=== PATIENT | male | born 1965 | race African-American/Black ===

== ENCOUNTER 2017-01-19 20:39 | Observation (INO) ==
[2017-01-19] MEDS ORDERED: SODIUM CHLORIDE 0.9% 500 ML IV STA (21:31)
[2017-01-19] MEDS ORDERED: ONDANSETRON 4 MG/2 ML VIAL IV STA (21:31)
[2017-01-19] MEDS ORDERED: NITROGLYCERIN 2% OINT 1 INCH/GM PACK TOP STA (21:31)
[2017-01-19] MEDS ORDERED: ALUM/MAG/SIMETH/LIDO VISC 1:1 30 ML BOTTLE PO STA (21:31)
[2017-01-19] MEDS ORDERED: MORPHINE 2 MG/1 ML SYRINGE IV STA (21:31)
[2017-01-19 21:47] LABS: Basophils % 0.3 % (0.0-0.8); Eosinophils % 0.6 % (0.00-10.9); Hematocrit 44.3 VOL% (42.0-52.0); Hemoglobin 14.9 GM/DL (14.0-18.0); Immature Granulocytes % 0.4 %; Immature Granulocytes Absolute 0.03 #; Lymphocytes # 3.9 10*3/uL (1.4-4.0); Lymphocytes % 57.2 % (21.2-54.2); Mean Corpuscular HGB Conc 33.6 GM/DL (32-36); Mean Corpuscular Hemoglobin 32 PG (27-34); Mean Corpuscular Volume 96.1 FL (87-102); Mean Platelet Volume 10.1 FL (9.6-12.0); Monocytes # 0.4 10*3/uL (0.11-0.8); Monocytes % 5.8 % (1.7-12.7); Neutrophils # 2.4 10*3/uL (1.4-7.4); Neutrophils % 35.7 % (38.7-73.9); Platelet Count 262 T/CUMM (130-400); Red Blood Count 4.61 MC/CUMM (3.8-5.5); Red Cell Distribution Width 13.1 % (9.3-17.3); White Blood Count 6.8 T/CUMM (4-12)
[2017-01-19] MEDS ORDERED: ONDANSETRON 4 MG/2 ML VIAL ONE (21:48)
[2017-01-19] MEDS ORDERED: NITROGLYCERIN 2% OINT 1 INCH/GM PACK TOP ONE (21:48)
[2017-01-19] MEDS ORDERED: MORPHINE 2 MG/1 ML SYRINGE ONE (21:49)
[2017-01-19] MEDS ORDERED: ALUM/MAG/SIMETH/LIDO VISC 1:1 30 ML BOTTLE PO ONE (21:49)
[2017-01-19 21:55] LABS: D-Dimer <= 0.5 MG/L FEU; INR 1.1; PT Patient Result 11.4 SECS
[2017-01-19 21:57] LABS: Albumin 4.1 G/DL (3.4-5.0); Bilirubin,Total 0.6 MG/DL (0.2-1.0); Calcium 9.2 MG/DL (8.5-10.1); Magnesium 2.3 MG/DL (1.8-2.4); Potassium 3.4 MMOL/L (3.5-5.1); Total Protein 8.1 G/DL (6.4-8.3)
--- NOTE | 2017-01-19 21:59 | XRay Report ---
Exam: XR chest 2V Date: 01/19/2017 9:31 PM Indication: Chest pain Comparison: None Technical: PA lateral Findings: Scarring is present in the right apex and perihilar suprahilar region. No obvious consolidating infiltrate or effusion. External cardiac leads are present. The mediastinum reveals small calcified nodes in the right hilus. The heart is normal in size. Impression: 1. Mild scarring and blebs or absence changes extending into the right apex with calcified nodes in the right perihilar region. PROCEDURE INTERPRETED AT [facility] DEPARTMENT OF RADIOLOGY Final Report Signed by: Dr. Harpreet Valdes
[2017-01-19 22:44] LABS: Apearance,Urine CLEAR (Clear); Bilirubin,Urine Negative (Negative); Blood, Urine Negative (Negative); Glucose,Urine (UA) Negative (Negative); Hyaline Casts,Urine 1 /LPF (0-3); Ketones,Urine Negative (Negative); Mucus,Urine Occasional /LPF (Occasional); Nitrite,Urine Negative (Negative); Protein,Urine Negative; RBC,Urine 1 /HPF (0-4); Urine Color Yellow (Yellow); Urine Specific Gravity 1.014 (1.001-1.035); WBC,Urine 2 /HPF (0-6)
[2017-01-19 22:50] LABS: Barbiturates Screen,Urine Negative (Negative); Benzodiazepines Screen,Urine Negative (Negative); Cannabinoid Screen,Urine Negative (Negative); Opiate Screen,Urine Positive (Negative); Phencyclidine Screen,Urine Negative (Negative)
[2017-01-20 00:10] LABS: Platelet Estimate Normal
--- NOTE | 2017-01-20 00:30 | Emergency Department Note ---
Jessenia Nicolas Hilary, am scribing for, and in the presence of, Byron Laazr MD 22:05. Cady Nicolas Charles R, MD, personally performed the services described in this documentation, ascribed by Angelina Ruelas in my presence, and it is both accurate and complete . Arrival - Arrival Chief Complaint: Chest Pain Stated Complaint: heart hurting ED Nursing Triage Note: C/O Pain over left breast nonradiating. Onset one week ago. Pt states that sometimes when he lays wrong it hurts. Denies SOB/Nausea/ Diaphoresis. Pt reports that ibuprofen does help at times Mode of Arrival: Ambulatory Limitations: No Limitations Source: Patient Time Seen by Provider: 01/19/17 21:31 - History of Present Illness HPI Narrative: Patient is a 51 y/o male presenting to the ED with chest pain which onset a week ago. He states that it is a pinching and sharp intermittent pain on the left side of his chest, he also complains of left leg "twisting" sensation. Patient confirms being SOB at night and when he is walking a lot. He also complains of wheezing when he lies down. No other complaints or problems in ED. Allergies/Adverse Reactions: Allergies Allergy/AdvReac Type Severity Reaction Status Date / Time aspirin AdvReac Intermediate Nausea Verified 01/19/17 20:44 Home Medications: Home Medications Medication Instructions Recorded Confirmed Type No Known Home Medications [No 01/19/17 01/19/17 History Known Home Medications] Review of System - Review of System 12 point system: reviewed and no additional remarkable complaints except as stated - Review of System Constitutional: Absent: fever Respiratory: Present: wheezing (when lying down) Cardiovascular: Present: chest pain, dyspnea on exertion (at night and when walking a lot) Musculoskeletal: Present: leg pain (left leg "twisting") Medical,Surgical,& Family Hx - Social History Smoking Status: Current every day smoker Frequency of Alcohol Use: None Type of Drug Use: None Exam Vital Signs: Vital Signs Temperature 98.0 F 01/19/17 20:41 Pulse Rate 72 01/20/17 00:05 Respiratory Rate 16 01/20/17 00:05 Blood Pressure 118/73 01/20/17 00:05 O2 Sat by Pulse Oximetry 100 01/20/17 00:05 - General General appearance: alert, in no apparent distress - Head Head exam: Present: atraumatic, normocephalic - Eye Eye exam: Present: normal appearance, PERRL, EOMI - ENT ENT exam: Present: mucous membranes moist, TM's normal bilaterally - Neck Neck exam: Present: full ROM, trachea midline. Absent: tenderness, meningismus , lymphadenopathy - Chest Chest inspection: Present: symmetric chest wall rise. Absent: tenderness - Respiratory Respiratory exam: Present: normal lung sounds bilaterally. Absent: respiratory distress - Cardiovascular Cardiovascular exam: Present: regular rate, normal rhythm, normal heart sounds. Absent: murmur, rubs, gallop - Abdominal Exam Abdominal exam: Present: soft, normal bowel sounds. Absent: distention, tenderness - Extremities Exam Extremities exam: Present: full ROM. Absent: tenderness, pedal edema, calf tenderness - Back Exam Back exam: Present: full ROM. Absent: tenderness - Neurological Exam Neurological exam: Present: alert, oriented X3, CN II-XII intact. Absent: motor sensory deficit - Psychiatric Psychiatric exam: Present: normal affect, normal mood - Skin Skin exam: Present: warm, dry, intact, normal color Course - Consultations Consultation #1: Hospitalist will admit patient Time: 00:38 Results - Labs CBC & BMP: 01/19/17 21:30 01/19/17 21:06 Lab Results: I have reviewed the patients labs Labs: Laboratory Tests 01/19/17 21:06 Potassium 3.4 L Chloride 109 H Glucose 108 H Globulin 4.0 H Albumin/Globulin Ratio 1.0 L - Diagnostic Findings Procedure: Chest x-ray: report reviewed by me (1. Mild scarring and blebs or absence changes extending into the right apex with calcified nodes in the right perihilar region.) Disposition Clinical Impression: Atypical chest pain Case discussed with: patient, patient's family Disposition: Still a Patient Condition: Stable Time of Disposition: 00:38
--- NOTE | 2017-01-20 01:06 | Hospitalist History & Physical ---
Assessment and Plan - Time spent with patient Time spent discussing smoking cessation with patient: 3 to 10 minutes (1) Chest tightness or pressure Status: Acute Current Visit: Yes (2) Smoker Status: Acute Current Visit: Yes (3) Elevated blood pressure reading Status: Acute Current Visit: Yes (4) COPD (chronic obstructive pulmonary disease) Status: Acute Assessment and plan: Plan: Observe, check serial cardiac enzymes, consult cardiology for stress test Follow blood pressure, patient may have underlying hypertension Current Visit: No Qualifiers: COPD type: emphysema History of Present Illness Chief complaint: Chest pressure 1 week History of present illness: Mr. Fitzpatrick is a 51 year old male with COPD seen on chest x-ray, longtime smoker , no routine health care in many years but has elevated blood pressure whenever he checks it at work. Apparently he has had 1 week of waxing and waning left- sided chest pressure that lasts several seconds and subsides spontaneously. There is no change with activity or rest. He has multiple episodes a day, but may also go a few days without having any episodes. He denies concomitant shortness of breath, diaphoresis, or nausea. Activities such as climbing stairs does not exacerbate this he states. The chest pressure does not radiate , tonight it became more intense than usual prompting him to come to the emergency room. At this time his symptoms are fairly constant despite nitro patch. Not reproducible with palpation. Home Medications Medication Instructions Recorded Confirmed Type No Known Home Medications [No 01/19/17 01/19/17 History Known Home Medications] Allergies Allergy/AdvReac Type Severity Reaction Status Date / Time aspirin AdvReac Intermediate Nausea Verified 01/19/17 20:44 Medical,Surgical,& Family Hx - Medical History Cardio: No history of: CHF, ID Neurology: No history of: Cerebrovascular Accident Respiratory: History of: COPD Gastrointestinal: No history of: GERD - Surgical History Additional Surgical History: No prior surgery - Family History Family History: Reports;: Family Heart Disease (Mother with CABG at age 60) - Social History Smoking Status: Current every day smoker Have you smoked in the last 12 months: Yes Time spent discussing smoking cessation with patient: 3 to 10 minutes Frequency of Alcohol Use: None Type of Drug Use: None Marital Status: Lives With:: Spouse Functional capacity: independent ambulation Review of systems: A 12 point review of systems is negative except as specified in the HPI Exam - Constitutional Vitals: Period Temp Pulse Resp BP Sys/Will Pulse Ox Last 24 Hr 98.0 F-98.0 F 72-103 11-22 110-160/67-89 97-100 Exam: EXAM: CONSTITUTIONAL: Thin, non toxic, NAD HEENT: NC, AT, OP benign, CECILIA, EOMI CV: RRR no m/g/r, pain nonreproducible with palpation of the chest wall RESP: clear B/L, no w/r/r, distant breath sounds GI: abd soft, NT, ND, +bowel sounds INTEGUMENTARY: no lesions or rash EXTREMITIES: no c/c/e NEURO: no focal deficits PSYCH: unremarkable, A/O x3 Results - Labs CBC & BMP: 01/20/17 02:00 01/20/17 02:00 Lab Results: I have reviewed the past 24 hour labs - EKG EKG shows: sinus rhythm - Diagnostic Findings Procedure: Chest x-ray: image reviewed by me, report reviewed by me
[2017-01-20] MEDS ORDERED: ACETAMINOPHEN 325 MG TABLET PO PRN (01:08)
[2017-01-20] MEDS ORDERED: MORPHINE 2 MG/1 ML SYRINGE IV PRN (01:08)
[2017-01-20] MEDS ORDERED: ONDANSETRON 4 MG/2 ML VIAL IV PRN (01:08)
[2017-01-20] MEDS ORDERED: BISACODYL 5 MG TABLET PO PRN (01:08)
[2017-01-20] MEDS ORDERED: ENOXAPARIN 40 MG/0.4 ML SYRINGE SUBCUT SCH (01:30)
[2017-01-20] MEDS ORDERED: NITROGLYCERIN SL 0.4 MG TABLET SL PRN (01:54)
[2017-01-20 02:17] LABS: Basophils % 0.2 % (0.0-0.8); Eosinophils % 0.7 % (0.00-10.9); Hemoglobin 14.3 GM/DL (14.0-18.0); Immature Granulocytes % 0.3 %; Immature Granulocytes Absolute 0.02 #; Lymphocytes # 3.4 10*3/uL (1.4-4.0); Lymphocytes % 56.8 % (21.2-54.2); Mean Corpuscular HGB Conc 32.5 GM/DL (32-36); Mean Corpuscular Hemoglobin 31 PG (27-34); Mean Corpuscular Volume 96.5 FL (87-102); Monocytes # 0.5 10*3/uL (0.11-0.8); Monocytes % 8.5 % (1.7-12.7); Neutrophils % 33.5 % (38.7-73.9); Platelet Count 274 T/CUMM (130-400); Red Blood Count 4.56 MC/CUMM (3.8-5.5); Red Cell Distribution Width 13.4 % (9.3-17.3)
[2017-01-20 02:49] LABS: Band Neutrophils 2 % (0-10); Eosinophils 1 % (0-10); Lymphocytes 64 % (20-55); Myelocytes 1 %; Segmented Neutrophils 29 % (50-85); Total Cells Counted 100
[2017-01-20 02:50] LABS: Anisocytosis 1+; Platelet Estimate Normal
[2017-01-20 02:52] LABS: Albumin 3.7 G/DL (3.4-5.0); Bilirubin,Total 0.5 MG/DL (0.2-1.0); Calcium 8.8 MG/DL (8.5-10.1); Magnesium 2.2 MG/DL (1.8-2.4); Potassium 3.9 MMOL/L (3.5-5.1); Risk Ratio 3.33; Total Protein 7.7 G/DL (6.4-8.3); VLDL CHOLESTEROL 33.8 MG/DL
[2017-01-20 02:54] LABS: Troponin I Only < 0.015 NG/ML (0.00-0.045)
[2017-01-20 06:56] LABS: Troponin I Only < 0.015 NG/ML (0.00-0.045)
--- NOTE | 2017-01-20 07:44 | EKG Report ---
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
--- NOTE | 2017-01-20 08:02 | EKG Report ---
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
[2017-01-20] MEDS ORDERED: PANTOPRAZOLE 40 MG TABLET PO SCH (09:00)
--- NOTE | 2017-01-20 09:15 | Cardiology Consult Note ---
Assessment and Plan - Time spent with patient Time spent with patient: Greater than 30 minutes (due to assessment, plan, and documentation) Time spent discussing smoking cessation with patient: 3 to 10 minutes (1) Atypical chest pain Status: Acute Assessment and plan: 51 y/o BM with no significant medical or surgical history. New diagnosis of hyperlipidemia. Hx of tobacco abuse, family hx of CAD. Presents with chest pain , not typical for angina, suspicious for GI etiology. Negative cardiac biomarkers. Had isolated elevated blood pressure readings on admission, now well controlled without medications. -Continue Atorvastatin 40mg QHS. -Will continue Lovenox, patient has a noted aspirin allergy. -Will hold NPO and discuss further workup with Dr. Vora. -Patient will need risk stratification. 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 He denies any significant medical history or surgical history. He currently smokes 1 pack per day and has smoked for the last 25 years. He denies a history of hypertension, diabetes, prior stroke, reflux, asthma, lung disease. He reports his mom had CABG at age 6 or 61 and is now . He does have a family history of hypertension and cancer. He presented to the emergency room yesterday evening with complaints of chest discomfort intermittently for the last week and a half. He tells me that he has noticed a few instances of chest discomfort prior to the last week and a half but it has recently become more frequent. He tells me he is having a couple episodes of chest discomfort per week. His pain is located along his left chest wall and axilla region. He describes this pain as sometimes being a pressure and sometimes being stabbing pain. He reports it only lasts for 5-10 seconds before going away. He tells me he has had occasional episodes while he is up and moving around but notices this discomfort more often when he is laying down. He tells me it is sometimes worse when he is laying in a particular position and is sometimes improved when he raises his left arm. He has noticed occasional palpitations. He has no associated shortness of breath, diaphoresis, nausea, vomiting, dizziness, lightheadedness, or syncope. He has had an isolated incidence of lightheadedness but reports this was not associated with his chest discomfort. He tells me he has been trying to gain weight his whole life and admits to eating a late supper around 8PM and going to bed right after. His is at the bedside and does report that he snores frequently and sometimes seems like he is gasping for air or gets choked in his sleep. 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 He tells me he has to climb multiple flights of stairs daily and is able to do this without experiencing chest discomfort or shortness of breath. He does report frequent leg pains and muscle spasms in his left leg and reports isolated incidences of it "giving way." He has had 3 sets of negative troponins. EKG shows sinus rhythm, no acute ischemic changes. He has had a few elevated blood pressure readings upon admission, but blood pressure is currently well controlled. He was found to have elevated triglycerides and has been started on Atorvastatin. I discussed with him for greater than 5 minutes the importance of total cessation from tobacco products. I advised to establish care with a primary care provider to follow with his wellness and screening exams. He was instructed to keep a blood pressure log to monitor for hypertension and follow up with a primary care provider. Given his family history and risk factors, he will need risk stratification to rule out for cardiac disease. Will further discuss with Dr. Vora as to whether this will be done inpatient or outpatient. The patient is currently being held NPO in anticipation of further evaluation. I also suspect he may have an underlying sleep disorder which may require further workup by sleep medicine. CC: Delores Corral MD - Home Medications and Allergies Home Medications: Home Medications Medication Instructions Recorded Confirmed Type No Known Home Medications [No 01/19/17 01/19/17 History Known Home Medications] Allergies/Adverse Reactions: Allergies Allergy/AdvReac Type Severity Reaction Status Date / Time aspirin AdvReac Intermediate Nausea Verified 01/19/17 20:44 Review of systems: - Constitutional: Present: stops breathing during sleep, As per HPI. Absent: anorexia, chills, daytime sleepiness, excessive sweating, fever(s), frequent falls, headache(s), increased appetite, lethargy, malaise, night sweats, weakness, weight gain, weight loss, fatigue. - EENT Eyes: Present: As per HPI. Absent: blurry vision, diplopia, loss of vision Ears: Present: As per HPI. Absent: decreased hearing, ear discharge, ear pain Nose, mouth and throat: Present: As per HPI. Absent: dysphagia, epistaxis, headache(s), hoarseness, lip swelling, nasal congestion, neck mass, neck pain, sinus pressure, sore throat, throat swelling, tongue swelling, vertigo - Cardiovascular: Present: chest pain at rest, chest pain with activity, palpitations, lightheadedness, as per HPI. Absent: dyspnea, dyspnea on exertion , edema, claudication, diaphoresis, radiating jaw, neck or arm pain, orthopnea, PND - Respiratory: Present: snoring, paroxysmal nocturnal dyspnea, as per HPI. Absent: dyspnea, dyspnea on exertion, cough, hemoptysis, wheezing, pain on inspiration - Gastrointestinal: Present: As per HPI. Absent: abdominal pain, bloating, change in bowel habits, constipation, diarrhea, heartburn, hematemesis, hematochezia, loose stools, melena, nausea, vomiting - Genitourinary: Present: As per HPI. Absent: difficulty urinating, dysuria, flank pain, hematuria, nocturia, urinary frequency, urinary incontinence - Musculoskeletal: Present: occasional left leg pain, muscle spasms, As per HPI. Absent: arthralgias, back pain, joint swelling, limited range of motion, muscle cramps, muscle weakness, myalgias - Neurological: Present: As per HPI. Absent: abnormal gait, abnormal speech, behavioral changes, confusion, convulsions, disequilibrium, dizziness, focal weakness, frequent falls, headache(s), memory loss, numbness, paresthesias, radicular pain, syncope, tremor(s) - Psychiatric: Present: As per HPI. Absent: anxiety, confusion, depression, panic attacks - Endocrine: Present: As per HPI. Absent: cold intolerance, fatigue, heat intolerance, polydipsia, polyphagia - Hematologic/Lymphatic: Present: As per HPI. Absent: easy bleeding, easy bruising, lymphadenopathy Medical,Surgical,& Family Hx - Medical History Cardio: No history of: CHF, Hypertension, SC Neurology: No history of: Cerebrovascular Accident Endocrine: No history of: Diabetes Mellitus (IDDM), Diabetes Mellitus (NIDDM) Respiratory: History of: COPD Gastrointestinal: No history of: GERD - Surgical History Thoracic Surgeries: Patient denies;: Lobectomy Neurologic Surgeries: Patient denies: Neurologic Surgery Abdominal Surgeries: Patient denies: Abdominal Surgery, Appendectomy, Cholecystectomy, Colonoscopy , Gastric Bypass Surgery, EGD, Hernia Repair - Family History Family History: Reports;: Family Heart Disease (Mother with CABG at age 60), Family Hypertension - Social History Smoking Status: Current every day smoker (1 pack per week) Have you smoked in the last 12 months: Yes Time spent discussing smoking cessation with patient: 3 to 10 minutes Frequency of Alcohol Use: None Type of Drug Use: None Marital Status: Lives With:: Spouse Functional capacity: independent ambulation Physical Examination Vital Signs Temp Pulse Resp BP Pulse Ox 98.0 F 103 H 18 143/88 97 01/19/17 20:41 01/19/17 20:41 01/19/17 20:41 01/19/17 20:41 01/19/17 20:41 Other: General appearance: Pleasant and cooperative. Normal weight, no acute distress. - Head Head exam: Present: normal inspection, normocephalic, atraumatic. Absent: hematoma, laceration - Eye Eye exam: Present: EOMI. Absent: conjunctival injection, nystagmus, periorbital swelling, scleral icterus, laceration to eyelids Pupils: Present: PERRL. Absent: constricted, dilated, fixed, irregular, unequal - ENT ENT exam: Present: normal exam, normal external ear exam - Neck Neck exam: Present: normal inspection. Absent: lymphadenopathy, meningismus, tenderness, thyromegaly - Respiratory Respiratory exam: Present: clear to auscultation bilaterally. Absent: accessory muscle use, chest wall tenderness, no rales, rhonchi, or wheezes. - Cardiovascular Cardiovascular exam: Present: regular rate and rhythm. Absent: carotid bruit, gallop, JVD, rubs - GI/Abdominal GI/Abdominal exam: Present: normal bowel sounds, soft. Absent: distended, firm , guarding, hernia, mass, tenderness, rebound. No abdominal thrill or bruit. - Extremities Exam Extremities exam: Present: normal inspection, normal capillary refill. Upper extremity pulses 2+. Lower extremity pulses 2+. Absent: calf tenderness, edema - Back Exam Back exam: Present: normal inspection. Absent: muscle spasm, vertebral tenderness - Neurological Exam Neurological exam: Present: alert, oriented X3, grossly intact without resting or essential tremor - Psychiatric Psychiatric exam: Present: normal affect, normal mood - Skin Skin exam: Present: normal color, warm, dry, intact. Absent: cyanosis, diaphoretic, rash, urticaria Result/EKG - Labs CBC & BMP: 01/20/17 02:00 01/20/17 02:00 Lab Results: I have reviewed the past 24 hour labs Labs: Laboratory Results - last 24 hr 01/20/17 01/20/17 01/20/17 02:00 02:00 02:00 WBC 6.0 RBC 4.56 Hgb 14.3 Hct 44.0 MCV 96.5 MCH 31 MCHC 32.5 RDW 13.4 Plt Count 274 MPV 10.0 Neut % (Auto) 33.5 L Lymph % (Auto) 56.8 H [place] % (Auto) 8.5 Eos % (Auto) 0.7 Baso % (Auto) 0.2 Neut # (Auto) 2.0 Lymph # (Auto) 3.4 [place] # (Auto) 0.5 Eos # (Auto) 0.0 Baso # (Auto) 0.0 Total Counted 100 Immature Gran % 0.3 Nucleated RBC % 0.0 Immature Gran # 0.02 Segmented Neutrophils 29 L Band Neutrophils 2 Lymphocytes 64 H Monocytes 3 Eosinophils 1 Myelocytes 1 Nucleated RBCs # 0.00 Platelet Estimate Normal Anisocytosis 1+ Sodium 150 H Potassium 3.9 Chloride 112 H Carbon Dioxide 28 Anion Gap 13.9 BUN 10 Creatinine 0.90 GFR Calculation 127 BUN/Creatinine Ratio 11.00 Glucose 85 Calculated Osmolality 295.0 Calcium 8.8 Magnesium 2.2 Total Bilirubin 0.50 AST 21 ALT 22 Alkaline Phosphatase 51 Total Creatine Kinase 241 CK-MB (CK-2) < 1.0 Troponin I < 0.015 Total Protein 7.7 Albumin 3.7 Globulin 4.0 H Albumin/Globulin Ratio 0.9 L Triglycerides 169 H Cholesterol 173 LDL Cholesterol 110.0 VLDL Cholesterol 33.8 HDL Cholesterol 52 Heart Disease Risk Ratio 3.33 04/06/17 06:49 WBC RBC Hgb Hct MCV MCH MCHC RDW Plt Count MPV Neut % (Auto) Lymph % (Auto) [place] % (Auto) Eos % (Auto) Baso % (Auto) Neut # (Auto) Lymph # (Auto) [place] # (Auto) Eos # (Auto) Baso # (Auto) Total Counted Immature Gran % Nucleated RBC % Immature Gran # Segmented Neutrophils Band Neutrophils Lymphocytes Monocytes Eosinophils Myelocytes Nucleated RBCs # Platelet Estimate Anisocytosis Sodium Potassium Chloride Carbon Dioxide Anion Gap BUN Creatinine GFR Calculation BUN/Creatinine Ratio Glucose Calculated Osmolality Calcium Magnesium Total Bilirubin AST ALT Alkaline Phosphatase Total Creatine Kinase 203 CK-MB (CK-2) < 1.0 Troponin I < 0.015 Total Protein Albumin Globulin Albumin/Globulin Ratio Triglycerides Cholesterol LDL Cholesterol VLDL Cholesterol HDL Cholesterol Heart Disease Risk Ratio - EKG EKG results: interpreted by me, sinus rhythm Quality Measures - Stroke Symptom Onset Unknown: No
--- NOTE | 2017-01-20 12:49 | Event Note ---
Patient achieved THR without difficulty. No chest pain, heaviness or tightness. Good exercise tolerance. Hypertensive response to exercise. No arrythmia noted. 1mm ST depression inferolateral leads during exercise. Now to nuclear medicine for final scan. Dr. Vora to read, interpret and advise.
--- NOTE | 2017-01-20 15:15 | Discharge Summary ---
<Johan Salinas - Last Filed: 01/20/17 15:09> Hospital Course - Hospital Course Hospital Course: Ms. Fitzpatrick is a 51-year-old male who was admitted to hospital medicine team on 01/19/2017 with complaints of 1 week of waxing and waning left-sided chest pressure. Chest x-ray on admission revealed mild scarring and blebs extending into the right apex with calcified nodes in the right perihilar region. EKG revealed normal sinus rhythm with nonspecific T-wave activity. Cardiac biomarkers were negative on admission, however, given his history, the patient was admitted overnight for observation. Patient had a stress test performed on 01/20/2017 which was negative. Patient is stable and has reached maximum benefit from this hospitalization and will be discharged with appropriate follow-up as outlined in discharge orders. - Time spent with patient Time with patient DS: Greater than 30 minutes Specialty Discharge - Follow Up or Referrals Discharge Plan - Discharge Data Disposition: Disch To Home/Self Care - Discharge Medications New Acetaminophen Tab [Tylenol Tab] 325 mg PO Q4H PRN #0 tablet PRN Reason: fever, headache/body aches HYDROcodone/ACETAMIN 5-325 [Randall 5-325] 1 tablet PO Q4H PRN #20 tablet PRN Reason: Pain Mild (1-3) Nitroglycerin Sl Tab [Nitrostat] 0.4 mg SL Q5M PRN #7 tablet PRN Reason: Chest Pain Pantoprazole Tab [Protonix Tab] 40 mg PO DAILY #30 tablet Atorvastatin [Lipitor] 40 mg PO BEDTIME #30 tablet - Follow Up or Referral - Forms/Instructions Instructions: How to Stop Smoking (GEN), Cigarette Smoking and Your Health (GEN ) Exam - Constitutional Vitals: Period Temp Pulse Resp BP Sys/Will Pulse Ox Last 24 Hr 97.1 F-99.3 F 72-87 18-20 122-151/59-79 96-99 Discharge Results Procedures and tests throughout hospitalization: Pending Orders 01/20/17 10:24 NM claudia perf SPECT rest or str Routine Labs on day of discharge: Labs from last 24 hours 01/20/17 01/20/17 01/20/17 06:49 02:00 02:00 WBC 6.0 RBC 4.56 Hgb 14.3 Hct 44.0 MCV 96.5 MCH 31 MCHC 32.5 RDW 13.4 Plt Count 274 MPV 10.0 Neut % (Auto) 33.5 L Lymph % (Auto) 56.8 H Glasscock % (Auto) 8.5 Eos % (Auto) 0.7 Baso % (Auto) 0.2 Neut # (Auto) 2.0 Lymph # (Auto) 3.4 Glasscock # (Auto) 0.5 Eos # (Auto) 0.0 Baso # (Auto) 0.0 Total Counted 100 Immature Gran % 0.3 Nucleated RBC % 0.0 Immature Gran # 0.02 Segmented Neutrophils 29 L Band Neutrophils 2 Lymphocytes 64 H Monocytes 3 Eosinophils 1 Myelocytes 1 Nucleated RBCs # 0.00 Platelet Estimate Normal Anisocytosis 1+ Sodium 150 H Potassium 3.9 Chloride 112 H Carbon Dioxide 28 Anion Gap 13.9 BUN 10 Creatinine 0.90 GFR Calculation 127 BUN/Creatinine Ratio 11.00 Glucose 85 Calculated Osmolality 295.0 Calcium 8.8 Magnesium 2.2 Total Bilirubin 0.50 AST 21 ALT 22 Alkaline Phosphatase 51 Total Creatine Kinase 203 CK-MB (CK-2) < 1.0 Troponin I < 0.015 Total Protein 7.7 Albumin 3.7 Globulin 4.0 H Albumin/Globulin Ratio 0.9 L Triglycerides 169 H Cholesterol 173 LDL Cholesterol 110.0 VLDL Cholesterol 33.8 HDL Cholesterol 52 Heart Disease Risk Ratio 3.33 01/20/17 02:00 WBC RBC Hgb Hct MCV MCH MCHC RDW Plt Count MPV Neut % (Auto) Lymph % (Auto) Glasscock % (Auto) Eos % (Auto) Baso % (Auto) Neut # (Auto) Lymph # (Auto) Glasscock # (Auto) Eos # (Auto) Baso # (Auto) Total Counted Immature Gran % Nucleated RBC % Immature Gran # Segmented Neutrophils Band Neutrophils Lymphocytes Monocytes Eosinophils Myelocytes Nucleated RBCs # Platelet Estimate Anisocytosis Sodium Potassium Chloride Carbon Dioxide Anion Gap BUN Creatinine GFR Calculation BUN/Creatinine Ratio Glucose Calculated Osmolality Calcium Magnesium Total Bilirubin AST ALT Alkaline Phosphatase Total Creatine Kinase 241 CK-MB (CK-2) < 1.0 Troponin I < 0.015 Total Protein Albumin Globulin Albumin/Globulin Ratio Triglycerides Cholesterol LDL Cholesterol VLDL Cholesterol HDL Cholesterol Heart Disease Risk Ratio DS: Provider Date of admission: 01/20/17 01:08 Primary care physician: . 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 Total CL-173,LDL-110 and TG-169.HDL-52. - Time spent with patient Time with patient DS: Greater than 30 minutes (Time spent:35mins) Diagnosis - Discharge Diagnosis (1) Atypical chest pain Status: Acute (2) Elevated blood pressure reading Status: Acute (3) Hyperlipidemia Status: Acute (4) Family history of coronary artery bypass surgery Status: Chronic Discharge Plan - Discharge Data Condition at Discharge: Stable Discharge Diet: heart healthy Activity: resume usual activities as tolerated - Forms/Instructions Additional Discharge Instructions: Follow up with PCP in 1week Exam - Constitutional General appearance: no acute distress - Head Head exam: Present: normal inspection - Respiratory Respiratory exam: Present: clear to auscultation bilaterally - Cardiovascular Cardiovascular exam: Present: regular rate and rhythm - GI/Abdominal GI/Abdominal exam: Present: normal bowel sounds - Extremities Exam Extremities exam: Present: normal inspection
[2017-01-20 16:45] VITALS: BP 140/84
--- NOTE | 2017-01-20 16:50 | Nuclear Medicine Report ---
EXERCISE STRESS TEST TEST WAS PERFORMED AND INTERPRETED BY: Dr. Flynn Vora INDICATION: Chest pain. PROCEDURE: The patient was injected with 10 mCi of Technetium-99 labeled Sestamibi at rest and rest images were obtained. The patient then exercised according to the Roman treadmill test protocol. At peak stress, 30 mCi of Technetium-99 labeled Sestamibi was injected and post-stress images were obtained. FINDINGS: At rest, sinus rhythm, 66 beats per minute, blood pressure 120/79 mmHg. The patient exercised to 8 minutes 37 seconds, achieving a peak 10.3 METs. The heart rate shakeel to 166 beats per minute, 92% of the maximum predicted heart rate. The peak blood pressure was 200/59 mmHg. There was no chest pain. At peak stress, there was 0.[address] depression in II, III , and aVF. Rest and post-rest gated and perfusion images were reviewed. There are no significant motion artifacts. The left ventricle is normal in size, the end-diastolic volume is 94 cc, the end-systolic volume is 33 cc, the calculated left ventricle ejection fraction is 65%. At rest, there is a small area in the apical/anterior region with moderately decreased activity, which improves post test. There are no corresponding wall motion abnormalities. This is consistent with imaging artifact. CONCLUSIONS: 1. CLINICALLY AND ELECTRICALLY NEGATIVE SUBMAXIMAL EXERCISE STRESS TEST 2. ROMAN TREADMILL STRESS SCORE 8. A LOW-RISK TEST. 3. NORMAL LEFT VENTRICLE SIZE, NORMAL SYSTOLIC FUNCTION, WITHOUT EVIDENCE OF OLD MYOCARDIAL DISEASE OR ISCHEMIA. 4. HYPERTENSIVE RESPONSE 5. THIS IS A LOW-RISK TEST. Procedure performed and interpreted at [facility] Department of Radiology. [facility]
[2017-01-20] MEDS ORDERED: ATORVASTATIN 40 MG TABLET PO SCH (21:00)
== END 2017-01-20 16:40 | disposition home or self-care (01) ==
LOC: N.EDINP 20:39 → N.ED 20:39 → N.TELES 01-20 01:33
PROVIDERS: ADMIT Internal Medicine; ATTEND Internal Medicine